=== PATIENT | male | born 1975 | race Two or more races ===

== ENCOUNTER 2019-09-17 05:17 | Emergency (ER) | payer SELFPAY ==
[~2019-09-17] VITALS: Ht 167.6 cm; Wt 122.0 kg
[2019-09-17] MEDS ORDERED: IV NORMAL SALINE 1000ML BAG 1,000 ML IV SCH (05:29)
[2019-09-17] MEDS ORDERED: fentaNYL PF VIAL 100 MCG/2 ML VIAL IV PRN (05:30)
[2019-09-17] MEDS ORDERED: ACETAMINOPHEN 500 MG TABLET PO ONE (05:45)
--- NOTE | 2019-09-17 05:46 | PHYS DOC ---
General Adult EDM: Chief Complaint: SHORTNESS OF BREATH HPI: HPI: Patient is a 44 year old male who presents via EMS with report of shortness of breath and chest wall discomfort. Patient was seen at yesterday and was diagnosed with pneumonia and discharged home on antibiotics. Patient indicates that he was not able to keep the antibiotics down and had vomiting. Patient also states that he has had a lot of chest wall discomfort throughout the night making it difficult to sleep. He states that it is very painful to breathe, describing the pain is sharp and stabbing in nature. He states is in the center of his chest. He denies any abdominal pain. He does indicate that he has had a low-grade fever. EMS reports patient's temperature was 100.4 while in route. [] (EZEQUIEL WALKER Jr. DO) Review of Systems: Review of Systems: Constitutional: Positive fever. [] Respiratory: Positive cough and shortness of breath. [] Cardiovascular: Positive chest wall pain. [] GI: Denies abdominal pain, nausea, vomiting or diarrhea. [] Neurologic: Denies headache, focal weakness or sensory changes. [] A full 10 point review of systems has been reviewed and is otherwise negative. (EZEQUIEL WALKER Jr. DO) Heart Score: Risk Factors: Risk Factors: DM, Current or recent (<one month) smoker, HTN, HLP, family history of CAD, obesity. Risk Scores: Score 0 - 3: 2.5% MACE over next 6 weeks - Discharge Home Score 4 - 6: 20.3% MACE over next 6 weeks - Admit for Clinical Observation Score 7 - 10: 72.7% MACE over next 6 weeks - Early Invasive Strategies (EZEQUIEL WALKER Jr. DO) Current Medications: Current Medications Medications (Trade) Dose Ordered Sig/[facility] Start Time Stop Time Status Last Admin Dose Admin Fentanyl Citrate (Fentanyl 2ml Vial) 50 mcg PRN Q15MIN PRN 09/17/19 05:30 09/18/19 05:29 UNV Sodium Chloride 1,000 ml @ 1,000 mls/hr Q1H 09/17/19 05:29 09/17/19 06:28 UNV (EZEQUIEL WALKER Jr. DO) Physical Exam: PE: Constitutional: Well developed, well nourished, no acute distress, non-toxic appearance. [] HENT: Normocephalic, atraumatic, bilateral external ears normal, oropharynx moist, no oral exudates, nose normal. [] Eyes: PERRLA, EOMI, conjunctiva normal, no discharge. [] Neck: Normal range of motion, no tenderness, supple. [] Cardiovascular: Regular rate and rhythm [] Lungs & Thorax: Bilateral breath sounds clear to auscultation [] Abdomen: Bowel sounds normal, soft, no tenderness. [] Skin: Warm, dry, no erythema, no rash. [] Extremities: No tenderness, no cyanosis, no clubbing, ROM intact. [] Neurologic: Alert and oriented X 3, no focal deficits noted. [] (EZEQUIEL WALKER Jr. DO) Current Patient Data: Labs: Laboratory Tests Test 09/17/19 05:40 White Blood Count 4.4 x10^3/uL (4.0-11.0) Red Blood Count 4.88 x10^6/uL (4.30-5.70) Hemoglobin 15.0 g/dL (13.0-17.5) Hematocrit 44.1 % (39.0-53.0) Mean Corpuscular Volume 90 fL (79-100) Mean Corpuscular Hemoglobin 31 pg (25-35) Mean Corpuscular Hemoglobin Concent 34 g/dL (31-37) Red Cell Distribution Width 14.2 % (11.5-14.5) Platelet Count 150 x10^3/uL (140-400) Neutrophils (%) (Auto) 65 % (31-73) Lymphocytes (%) (Auto) 21 % (24-48) Monocytes (%) (Auto) 13 % (0-9) Eosinophils (%) (Auto) 0 % (0-3) Basophils (%) (Auto) 1 % (0-3) Neutrophils # (Auto) 2.8 x10^3/uL (1.8-7.7) Lymphocytes # (Auto) 0.9 x10^3/uL (1.0-4.8) Monocytes # (Auto) 0.6 x10^3/uL (0.0-1.1) Eosinophils # (Auto) 0.0 x10^3/uL (0.0-0.7) Basophils # (Auto) 0.0 x10^3/uL (0.0-0.2) D-Dimer (Shey) < 0.27 ug/mlFEU Sodium Level 136 mmol/L (136-145) Chloride Level 102 mmol/L (98-107) Carbon Dioxide Level 23 mmol/L (21-32) Anion Gap 11 (6-14) Blood Urea Nitrogen 8 mg/dL (8-26) Estimated GFR (Cockcroft-Gault) 90.8 BUN/Creatinine Ratio 9 (6-20) Glucose Level 140 mg/dL (70-99) Calcium Level 7.8 mg/dL (8.5-10.1) Total Bilirubin 0.3 mg/dL (0.2-1.0) Aspartate Amino Transf (AST/SGOT) 55 U/L (15-37) Alkaline Phosphatase 75 U/L (46-116) Troponin I Quantitative < 0.017 ng/mL (0.000-0.055) Total Protein 7.1 g/dL (6.4-8.2) Albumin 3.2 g/dL (3.4-5.0) Albumin/Globulin Ratio 0.8 (1.0-1.7) (KARINE RICHARDSON DO) EKG: EKG: [] (EZEQUIEL WALKER Jr., DO) EKG: EKG at 0555. NSR. HR 92. Nml intervals. No STEMI. Interp by me. (KARINE RICHARDSON DO) Radiology/Procedures: Radiology/Procedures: [] (EZEQUIEL WALKER Jr., DO) Radiology/Procedures: PROCEDURE: PORTABLE CHEST 1V INDICATION: Reason: chest wall pain / Spl. Instructions: / History: COMPARISON: None. FINDINGS: Single view of chest obtained. Along the left lateral thorax there is relative increased density identified. A portion of this density is seen over lying the scapular shadow. Cardiac silhouette is upper limits of normal in size. IMPRESSION: * Relative density along the left lateral chest. A large portion of this is likely secondary to overlap of the scapular shadow but would consider obtaining a formal PA and lateral chest radiograph to ensure that this does not persist to exclude alternative causes such as consolidation within the region. Electronically signed by: Vince Zaragoza MD (09/17/2019 6:13 AM) [id number] (KARINE RICHARDSON DO) Course & Med Decision Making: Course & Med Decision Making Pertinent Labs and Imaging studies reviewed. (See chart for details) [] (EZEQUIEL WALKER Jr. DO) Course & Med Decision Making Assumed care from Dr. Walker at 0600. In summary, 44M p/w URI Sx and CP. HDS, though febrile receiving APAP. Nml pulse ox on RA. CXR with ?consolidative changes (started on augmentin/doxy at [facility] yesterday). Labs without leukocytosis, though some lymphopenia. Trop neg. Dimer neg. ?COVID19 given URI Sx, current pandemic, lymphopenia, etc. Tested yesterday at [facility], results pending. Regardless, does not require admission at this time. Will DC home with continuation of abx, with addition of Rx zofran/albuterol MDI. Advised self quarantine and usual pandemic precautions. Return precautions given. (KARINE RICHARDSON DO) Dragon Disclaimer: Dragon Disclaimer: This electronic medical record was generated, in whole or in part, using a voice recognition dictation system. (EZEQUIEL WALKER Jr., DO) Departure Departure Impression: Primary Impression: Pneumonia Disposition: 01 HOME, SELF-CARE Condition: STABLE Patient Instructions: Pneumonia, Adult, [id number] Additional Instructions: Please take tylenol and/or motrin as needed for pain/fever. Return to the ED if you develop new or worsening symptoms. Scripts Ondansetron Hcl (ZOFRAN) 4 Mg Tablet 1 TAB PO PRN Q6-8HRS, #12 TAB 1 Refill Prov: KARINE RICHARDSON DO 09/17/19 Albuterol Sulfate (PROAIR HFA INHALER) 8.5 Gm Hfa.aer.ad 2 PUFF IH PRN Q4-6HRS PRN for wheezing for 21 Days, #1 INHALER 0 Refills Prov: KARINE RICHARDSON DO 09/17/19 Justicifation of Admission Dx: Justifications for Admission: Justification of Admission Dx: N/A (KARINE RICHARDSON DO) EZEQUIEL WALKER Jr., DO Sep 17, 2019 05:46 KARINE RICHARDSON DO Sep 17, 2019 06:11
[2019-09-17 05:52] LABS: BASO % 1 % (0-3); EOS % 0 % (0-3); HEMATOCRIT 44.1 % (39.0-53.0); LYMPH # 0.9 x10^3/uL (1.0-4.8); LYMPH % 21 % (24-48); MEAN CORPUSCULAR HEMOGLOBIN 31 pg (25-35); MEAN CORPUSCULAR HGB CONC 34 g/dL (31-37); MEAN CORPUSCULAR VOLUME 90 fL (79-100); MONO # 0.6 x10^3/uL (0.0-1.1); MONO % 13 % (0-9); NEUT # 2.8 x10^3/uL (1.8-7.7); NEUT % 65 % (31-73); PLATELET COUNT 150 x10^3/uL (140-400); RED BLOOD COUNT 4.88 x10^6/uL (4.30-5.70); RED CELL DISTRIBUTION WIDTH 14.2 % (11.5-14.5); WHITE BLOOD COUNT 4.4 x10^3/uL (4.0-11.0)
[2019-09-17 06:03] LABS: CALCIUM 7.8 mg/dL (8.5-10.1); CREATININE 0.9 mg/dL (0.7-1.3); GFR 90.8; POTASSIUM 3.2 mmol/L (3.5-5.1)
[2019-09-17 06:08] LABS: ALBUMIN 3.2 g/dL (3.4-5.0); ALBUMIN/GLOBULIN RATIO 0.8 (1.0-1.7); TOTAL BILIRUBIN 0.3 mg/dL (0.2-1.0); TOTAL PROTEIN 7.1 g/dL (6.4-8.2)
--- NOTE | 2019-09-17 06:16 | RAD ---
INDICATION: Reason: chest wall pain / Spl. Instructions: / History: COMPARISON: None. FINDINGS: Single view of chest obtained. Along the left lateral thorax there is relative increased density identified. A portion of this density is seen over lying the scapular shadow. Cardiac silhouette is upper limits of normal in size. IMPRESSION: * Relative density along the left lateral chest. A large portion of this is likely secondary to overlap of the scapular shadow but would consider obtaining a formal PA and lateral chest radiograph to ensure that this does not persist to exclude alternative causes such as consolidation within the region. Electronically signed by: Vince Zaragoza MD (09/17/2019 6:13 AM) [id number]
--- NOTE | 2019-09-17 06:23 | EKG ---
[facility] [address] [place] [address] Test Date: 2019-09-17 Test Time: 05:55:04 Pat Name: TERE JONES Department: Room: Gender: M Medical Information Specialist: : [id number] Requested By: EZEQUIEL JOSHUA Order Number: [id number] Reading MD: Vidal Jameson Measurements Intervals [place] Rate: 92 P: 56 MT: 150 QRS: -11 QRSD: 90 T: 27 QT: 352 QTc: 440 Interpretive Statements SINUS RHYTHM LEFTWARD AXIS S1,S2,S3 PATTERN Electronically Signed On 09-19-2019 16:21:20 CDT by Vidal Jameson
[2019-09-17] MEDS ORDERED: ONDANSETRON PF 4 MG/2 ML VIAL. ONE (06:28)
[2019-09-17] MEDS ORDERED: ALBU2.5V8 IH (06:30)
[2019-09-17] MEDS ORDERED: ONDA4TAB7 PO (06:30)
[2019-09-17] MEDS ORDERED: ONDANSETRON PF 4 MG/2 ML VIAL. IVP ONE (06:30)
[2019-09-17 06:38] VITALS: BP 147/83
== END 2019-09-17 06:55 | disposition home or self-care (01) ==
LOC: ER 05:17
DX: J18.9 Pneumonia, unspecified organism (principal); R11.10 Vomiting, unspecified
CPT/HCPCS: 36415; 71045; 80053; 83880; 84484; 85025; 85379; 93005; 96361; 96374; 96375; 99285; J2405; J3010; J7030